=== PATIENT | male | born 1980 | race African-American/Black ===

== ENCOUNTER 2019-06-19 17:52 | Emergency (ER) | payer MEDICAID | END 2019-06-19 18:07 | disposition left against medical advice (07) | LOC: ER 17:52 | DX: T14.8XXA Other injury of unspecified body region, initial encounter (principal); X58.XXXA Exposure to other specified factors, initial encounter; Z53.21 Procedure and treatment not carried out due to patient leaving prior to being seen by health care provider ==

== ENCOUNTER 2020-09-27 10:10 | Emergency (ER) | payer MEDICAID ==
[~2020-09-27] VITALS: Ht 177.8 cm; Wt 100.0 kg
[2020-09-27 10:59] LABS: BASOPHILS % 0.6 % (0.0-2.0); EOSINOPHILS % 3.3 % (0.0-5.0); HEMATOCRIT. 44.4 % (42.0-52.0); HEMOGLOBIN. 15.9 g/dL (14.0-18.0); LYMPHOCYTES % 36.3 % (20.0-50.0); MEAN CORPUSCULAR HEMOGLOBIN 34.3 pg (28.0-32.0); MEAN CORPUSCULAR VOLUME 95.8 fL (80.0-94.0); MEAN PLATELET VOLUME 7.9 fl (7.4-10.4); MONOCYTES % 7.5 % (2.0-8.0); NEUTROPHILS % 52.3 % (40.0-76.0); PLATELET 191 x1000/uL (130-400); RED BLOOD CELL COUNT 4.64 mill/uL (4.7-6.1); RED CELL DISTRIBUTION WIDTH 13.1 % (11.6-14.6)
[2020-09-27 11:04] LABS: CHLORIDE 110 mEq/L (98-107)
[2020-09-27] MEDS ORDERED: NAPR-1176 MT (11:40)
[2020-09-27 12:13] VITALS: BP 115/52
== END 2020-09-27 12:14 | disposition home or self-care (01) ==
LOC: ER 10:10
DX: G56.01 Carpal tunnel syndrome, right upper limb (principal); J45.909 Unspecified asthma, uncomplicated; I49.9 Cardiac arrhythmia, unspecified
CPT/HCPCS: 36415; 80053; 82962; 85025; 93005; 99285

== ENCOUNTER 2022-03-06 10:37 | Emergency (ER) | payer MEDICAID ==
[~2022-03-06] VITALS: Ht 167.6 cm; Wt 65.0 kg
[~2022-03-06 10:37] MED LIST: NAPR-1176 MT
[2022-03-06] MEDS ORDERED: KETOROLAC 60MG/2ML VIAL IM STA (12:19)
[2022-03-06] MEDS ORDERED: IPRATROPIUM BROMIDE (0.02%) 0.5MG/2.5ML NEB HHN STA (12:22)
[2022-03-06] MEDS ORDERED: METHYLPREDNISOLONE SOD SUCC 125 MG/2 ML VIAL IM STA (12:22)
[2022-03-06] MEDS ORDERED: ALBUTEROL (0.083%) 2.5MG/3ML NEB HHN STA (12:22)
[2022-03-06 13:08] VITALS: BP 142/82
[2022-03-06 14:19] LABS: CLARITY URINE CLOUDY (CLEAR); COLOR URINE DARK YELLOW (YELLOW); KETONES URINE TRACE (NEGATIVE); LEUKOCYTE ESTERASE URINE TRACE (NEGATIVE); NITRITE URINE NEGATIVE (NEGATIVE); OCCULT BLOOD URINE 1+ (NEGATIVE); PROTEIN URINE 1+ (NEGATIVE); SPECIFIC GRAVITY URINE 1.036 (1.005-1.030)
[2022-03-06] MEDS ORDERED: TRAMADOL 50MG TABLET PO STA (14:35)
[2022-03-06] MEDS ORDERED: TRAM50TA3 MT (14:48)
[2022-03-06] MEDS ORDERED: NAPR500T7 PO (14:48)
[2022-03-06] MEDS ORDERED: ALBU18HF2 IH (14:48)
[2022-03-06] MEDS ORDERED: P50 PO (14:48)
== END 2022-03-06 15:43 | disposition home or self-care (01) ==
LOC: ER 12:07
DX: J06.9 Acute upper respiratory infection, unspecified (principal); R06.02 Shortness of breath; Z20.822 Contact with and (suspected) exposure to COVID-19; Z88.6 Allergy status to analgesic agent
CPT/HCPCS: 71045; 72110; 81003; 87426; 94640; 96372; 99284; C9803; J1885; J2930; Z7610

== ENCOUNTER 2025-04-10 22:20 | Emergency (ER) | payer MEDICAID ==
[~2025-04-10] VITALS: Ht 179.1 cm; Wt 88.3 kg
[~2025-04-10 22:20] MED LIST changes: +ALBU18HF2 IH; +NAPR-1486 PO; +P50 PO; +TRAM50TA3 MT
[2025-04-10 23:04] LABS: BASOPHILS % 0.9 % (0.0-2.0); EOSINOPHILS % 4.0 % (0.0-5.0); HEMATOCRIT. 41.5 % (42.0-52.0); HEMOGLOBIN. 14.1 g/dL (14.0-18.0); LYMPHOCYTES % 39.9 % (20.0-50.0); MEAN PLATELET VOLUME 7.5 fl (7.4-10.4); MONOCYTES % 10.6 % (2.0-8.0); NEUTROPHILS % 44.6 % (40.0-76.0); PLATELET 205 x1000/uL (130-400); RED BLOOD CELL COUNT 4.34 mill/uL (4.7-6.1); RED CELL DISTRIBUTION WIDTH 12.9 % (11.6-14.6)
[2025-04-10 23:12] LABS: CREATININE 0.9 mg/dL (0.6-1.3)
[2025-04-10 23:13] LABS: TROPONIN I HIGH SENSITIVITY 4 ng/L (3.0-53); UREA NITROGEN BLOOD 14 mg/dL (9-23)
[2025-04-10] MEDS: DEXAMETHASONE 10 MG/ML VIAL IM ONE (23:59)
[2025-04-10] MEDS: ONDANSETRON HCL 4MG/2ML INJ IM ONE (23:59)
[2025-04-11] VITALS: PULSE 59; RESP 22; O2SAT 95
[2025-04-11] MEDS: IPRATROPIUM BROMIDE (0.02%) 0.5MG/2.5ML NEB HHN SCH
[2025-04-11] MEDS: ALBUTEROL (0.083%) 2.5MG/3ML NEB HHN SCH (00:01)
[2025-04-11 00:30] LABS: INFLUENZA TYPE A Presumptive Negative (Pres. Neg.)
[2025-04-11 00:31] LABS: INFLUENZA TYPE B Presumptive Negative (Pres. Neg.)
[2025-04-11] MEDS ORDERED: FLUT9.9S BOTHNSTRLS (01:07)
[2025-04-11] MEDS ORDERED: ALBU18HF2 IH (01:07)
[2025-04-11] MEDS ORDERED: ONDA4TAB50 PO (01:07)
[2025-04-11] MEDS ORDERED: DOXY100T28 MT (01:07)
[2025-04-11] MEDS ORDERED: P50 MT (01:07)
[2025-04-11 01:17] VITALS: BP 120/71; PULSE 88; RESP 18; TEMP 36.7; O2SAT 99
== END 2025-04-11 01:18 | disposition home or self-care (01) ==
LOC: ER 22:20
DX: J45.901 Unspecified asthma with (acute) exacerbation (principal); J20.9 Acute bronchitis, unspecified; R07.9 Chest pain, unspecified; Z79.52 Long term (current) use of systemic steroids; Z79.1 Long term (current) use of non-steroidal anti-inflammatories (NSAID); Z20.822 Contact with and (suspected) exposure to COVID-19
CPT/HCPCS: 80048; 85025; 84484; 87804 ×2; 36415; 71045; 93005; 96372; 99285; 87426; 94640; J1100; J2405; Z7610 ×3